=== PATIENT | male | born 1970 | race Caucasian/White ===

== ENCOUNTER 2017-08-25 09:52 | Inpatient (IN) | payer OTHER ==
[2017-08-25 10:30] VITALS: BMI 29.4
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
[2017-08-25] MEDS ORDERED: hydrOXYzine PAMOATE 50 MG CAPSULE (FP) PO PRN (12:00)
[2017-08-25] MEDS ORDERED: ACETAMINOPHEN 325 MG TABLET (FP) PO PRN (12:00)
[2017-08-25] MEDS ORDERED: MENTHOL/PHENOL 1 EACH UD MM PRN (12:00)
[2017-08-25] MEDS ORDERED: MAGNESIUM CITRATE 300 ML BOTTLE PO PRN (12:00)
[2017-08-25] MEDS ORDERED: MAGNESIUM HYDROX 2400MG/30ML ORAL SUSPENSION 30 ML CUP PO PRN (12:00)
[2017-08-25] MEDS ORDERED: LOPERAMIDE HCL 2 MG CAPSULE PO PRN (12:00)
[2017-08-25] MEDS ORDERED: IBUPROFEN 400 MG TABLET (FP) PO PRN (12:00)
[2017-08-25] MEDS ORDERED: MAG HYDROX/AL HYDROX/SIMETH 30 ML UNIT-DOSE CUP PO PRN (12:00)
[2017-08-25] MEDS ORDERED: guaiFENesin/D-METHORPHAN HB 10 ML UNIT-DOSE CUPS PO PRN (12:00)
[2017-08-25] MEDS ORDERED: chlordiazePOXIDE HCL 25 MG CAPSULE PO PRN (12:00)
[2017-08-25] MEDS ORDERED: P-EPHED 60MG/TRIPROLIDI 2.5MG TABLET PO PRN (12:00)
[2017-08-25] MEDS: LIDOCAINE 5% TOPICAL PATCH TP SCH (12:47)
[2017-08-25] MEDS ORDERED: chlordiazePOXIDE HCL 25 MG CAPSULE PO ONE (13:00)
[2017-08-25] MEDS: LEVOTHYROXINE NA 175 MCG TABLET PO SCH (13:31)
[2017-08-25 16:28] LABS: URINE APPEARANCE CLEAR; URINE BILIRUBIN NEGATIVE (NEGATIVE); URINE BLOOD NEGATIVE (NEGATIVE); URINE COLOR YELLOW; URINE GLUCOSE (UA) NEGATIVE (NEGATIVE); URINE KETONE NEGATIVE (NEGATIVE); URINE LEUK ESTERASE NEGATIVE (NEGATIVE); URINE NITRITE NEGATIVE (NEGATIVE); URINE PROTEIN NEGATIVE (NEGATIVE); URINE UROBILINOGEN 4.0 E.U/dl mg/dL (0.2-1.0)
[2017-08-25] MEDS: chlordiazePOXIDE HCL 25 MG CAPSULE PO SCH ×2 (17:16→22:40)
[2017-08-25] MEDS: IBUPROFEN 600 MG TABLET (FP) PO PRN (18:13)
[2017-08-25] MEDS: LIDOCAINE PATCH REMOVAL MC SCH (22:40)
[2017-08-25] MEDS: THIAMINE HCL 100 MG TABLET (FP) PO SCH (22:40)
[2017-08-26] MEDS: chlordiazePOXIDE HCL 25 MG CAPSULE PO SCH ×4 (06:03→22:54)
[2017-08-26] MEDS: PRENATAL VITAMINS W/ FOLIC ACID TABLET (FP) PO SCH (10:18)
[2017-08-26] MEDS: LIDOCAINE 5% TOPICAL PATCH TP SCH (10:19)
[2017-08-26] MEDS: LEVOTHYROXINE NA 175 MCG TABLET PO SCH (10:19)
[2017-08-26] MEDS: IBUPROFEN 600 MG TABLET (FP) PO PRN ×2 (10:36→17:38)
[2017-08-26 10:52] LABS: HEMATOCRIT 42.9 % (35.4-49); HEMOGLOBIN 14.2 GM/dL (11.7-16.9); MCHC 33.1 g/dl (32.0-35.9); MEAN CELL VOLUME 96.8 fl (80-96); MEAN PLT VOLUME 9.6 fl (7.5-11.1); PLATELET COUNT 260 K/MM3 (134-434); RBC 4.43 M/mm3 (4.00-5.60); RDW 14.7 % (11.9-15.9)
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
[2017-08-26 11:08] LABS: ALBUMIN 3.7 g/dl (3.4-5.0); ALK PHOS 106 U/L (45-117); ANION GAP 6 (8-16); BILIRUBIN,TOTAL 0.4 mg/dL (0.2-1.0); BLOOD UREA NITROGEN 16 mg/dL (7-18); CALCIUM 7.8 mg/dL (8.5-10.1); CHLORIDE 111 mmol/L (98-107); CO2 26 mmol/L (21-32); GLUCOSE,RANDOM 68 mg/dL (74-106); POTASSIUM 4.4 mmol/L (3.5-5.1); SGOT/AST 20 U/L (15-37); SGPT/ALT 24 U/L (12-78); SODIUM 143 mmol/L (136-145); TOT PROT 6.6 g/dl (6.4-8.2)
--- NOTE | 2017-08-26 11:19 | EKG ---
Test Reason : Blood Pressure : / mmHG Vent. Rate : 058 BPM Atrial Rate : 058 BPM P-R Int : 138 ms QRS Dur : 100 ms QT Int : 408 ms P-R-T Axes : 058 047 036 degrees QTc Int : 400 ms SINUS BRADYCARDIA OTHERWISE NORMAL ECG NO PREVIOUS ECGS AVAILABLE Confirmed by OSMANI CUEVAS MD ([id number]) on 08/26/2017 11:19:09 AM Referred By: Confirmed By:OSMANI CUEVAS MD
[2017-08-26] MEDS ORDERED: hydrOXYzine PAMOATE 50 MG CAPSULE (FP) PO PRN (11:23)
[2017-08-26] MEDS: ESCITALOPRAM OXALATE 10 MG TABLET (FP) PO SCH (13:58)
--- NOTE | 2017-08-26 16:33 | PN ---
S CIWA - CIWA Score Nausea/Vomitin Muscle Tremors: 3 Anxiety: 3 Agitation: 3 Paroxysmal Sweats: 1-Minimal Palms Moist Orientation: 0-Oriented Tacttile Disturbances: 1-Very Mild Itch/Numbness Auditory Disturbances: 1-Very Mild Visual Disturbances: 0-None Headache: 2-Mild CIWA-Ar Total Score: 17 BHS Progress Note (SOAP) Subjective: ALERT,IRRITABLE,ANXIOUS,INTERRUPTED SLEEP Objective: 08/26/17 16:32 Vital Signs Temperature 99.6 F 08/26/17 13:50 Pulse Rate 57 L 08/26/17 13:50 Respiratory Rate 18 08/26/17 13:50 Blood Pressure 120/76 08/26/17 13:50 O2 Sat by Pulse Oximetry (%) Laboratory Last Values WBC 7.0 K/mm3 (4.0-10.0) 08/26/17 08:00 RBC 4.43 M/mm3 (4.00-5.60) 08/26/17 08:00 Hgb 14.2 GM/dL (11.7-16.9) 08/26/17 08:00 Hct 42.9 % (35.4-49) 08/26/17 08:00 MCV 96.8 fl (80-96) H 08/26/17 08:00 MCH 32.0 pg (25.7-33.7) 08/26/17 08:00 MCHC 33.1 g/dl (32.0-35.9) 08/26/17 08:00 RDW 14.7 % (11.9-15.9) 08/26/17 08:00 Plt Count 260 K/MM3 (134-434) 08/26/17 08:00 MPV 9.6 fl (7.5-11.1) 08/26/17 08:00 Sodium 143 mmol/L (136-145) 08/26/17 08:00 Potassium 4.4 mmol/L (3.5-5.1) 08/26/17 08:00 Chloride 111 mmol/L (98-107) H 08/26/17 08:00 Carbon Dioxide 26 mmol/L (21-32) 08/26/17 08:00 Anion Gap 6 (8-16) L 08/26/17 08:00 BUN 16 mg/dL (7-18) 08/26/17 08:00 Creatinine 1.0 mg/dL (0.7-1.3) 08/26/17 08:00 Creat Clearance w eGFR > 60 (>60) 08/26/17 08:00 Random Glucose 68 mg/dL (74-106) L 08/26/17 08:00 Calcium 7.8 mg/dL (8.5-10.1) L 08/26/17 08:00 Total Bilirubin 0.4 mg/dL (0.2-1.0) 08/26/17 08:00 AST 20 U/L (15-37) 08/26/17 08:00 ALT 24 U/L (12-78) 08/26/17 08:00 Alkaline Phosphatase 106 U/L (45-117) 08/26/17 08:00 Total Protein 6.6 g/dl (6.4-8.2) 08/26/17 08:00 Albumin 3.7 g/dl (3.4-5.0) 08/26/17 08:00 Urine Color Yellow 08/25/17 16:00 Urine Appearance Clear 08/25/17 16:00 Urine pH 5.0 (5.0-8.0) 08/25/17 16:00 Ur Specific [place] 1.026 (1.001-1.035) 08/25/17 16:00 Urine Protein Negative (NEGATIVE) 08/25/17 16:00 Urine Glucose (UA) Negative (NEGATIVE) 08/25/17 16:00 Urine Ketones Negative (NEGATIVE) 08/25/17 16:00 Urine Blood Negative (NEGATIVE) 08/25/17 16:00 Urine Nitrite Negative (NEGATIVE) 08/25/17 16:00 Urine Bilirubin Negative (NEGATIVE) 08/25/17 16:00 Urine Urobilinogen 4.0 e.u/dl mg/dL (0.2-1.0) 08/25/17 16:00 Ur Leukocyte Esterase Negative (NEGATIVE) 08/25/17 16:00 RPR Titer Nonreactive (NONREACTIVE) 08/26/17 08:00 Assessment: 08/26/17 16:33 WITHDRAWAL SYMPTOM Plan: CONTINUE DETOX,BGM MONITORING,INITIAL GLUCOSE IS 68
[2017-08-26] MEDS: THIAMINE HCL 100 MG TABLET (FP) PO SCH (22:53)
[2017-08-26] MEDS: LIDOCAINE PATCH REMOVAL MC SCH (22:54)
[2017-08-26] MEDS: HYDROCORTISONE 1% TOPICAL CREAM 30 GM TUBE TP PRN (22:55)
[2017-08-27] MEDS: chlordiazePOXIDE HCL 25 MG CAPSULE PO SCH ×2 (05:49→10:50)
[2017-08-27] MEDS ORDERED: LEVOTHYROXINE NA 25 MCG TABLET (FP) ONE (06:16)
[2017-08-27] MEDS ORDERED: LEVOTHYROXINE NA 100 MCG TABLET (FP) ONE (06:16)
[2017-08-27] MEDS: LEVOTHYROXINE 75 MCG, LEVOTHYROXINE 100 MCG PO SCH (06:21)
[2017-08-27] MEDS: IBUPROFEN 600 MG TABLET (FP) PO PRN ×2 (06:58→22:08)
[2017-08-27] MEDS ORDERED: LEVOTHYROXINE NA 175 MCG TABLET PO SCH (07:00)
[2017-08-27] MEDS: LIDOCAINE 5% TOPICAL PATCH TP SCH (10:50)
[2017-08-27] MEDS: PRENATAL VITAMINS W/ FOLIC ACID TABLET (FP) PO SCH (10:50)
[2017-08-27] MEDS: ESCITALOPRAM OXALATE 10 MG TABLET (FP) PO SCH (10:50)
[2017-08-27] MEDS: CYCLOBENZAPRINE HCL 10 MG TABLET (FP) PO PRN (10:50)
--- NOTE | 2017-08-27 16:25 | PN ---
[facility] CIWA - CIWA Score Nausea/Vomitin Muscle Tremors: 3 Anxiety: 5 Agitation: 5 Paroxysmal Sweats: No Perspiration Orientation: 2-Disoriented Date<2 days Tacttile Disturbances: 1-Very Mild Itch/Numbness Auditory Disturbances: 0-None Visual Disturbances: 0-None Headache: 0-None Present CIWA-Ar Total Score: 19 BHS Progress Note (SOAP) Subjective: Anxious, Agitated, Sweating, Chills, Diarrhea, Nausea, Body Aches. Objective: PT. A & O X 3, OBSERVED MOVING ABOUT UNIT IN A WHEELCHAIR. NO ACUTE DISTRESS. 08/27/17 16:23 Vital Signs Temperature 96.6 F L 08/27/17 14:08 Pulse Rate 59 L 08/27/17 14:08 Respiratory Rate 20 08/27/17 14:08 Blood Pressure 117/68 08/27/17 14:08 O2 Sat by Pulse Oximetry (%) Laboratory Tests 08/25/17 08/26/17 08/26/17 16:00 08:00 08:00 WBC 7.0 RBC 4.43 Hgb 14.2 Hct 42.9 MCV 96.8 H MCH 32.0 MCHC 33.1 RDW 14.7 Plt Count 260 MPV 9.6 Sodium 143 Potassium 4.4 Chloride 111 H Carbon Dioxide 26 Anion Gap 6 L BUN 16 Creatinine 1.0 Creat Clearance w eGFR > 60 POC Glucometer Random Glucose 68 L Calcium 7.8 L Total Bilirubin 0.4 AST 20 ALT 24 Alkaline Phosphatase 106 Total Protein 6.6 Albumin 3.7 Urine Color Yellow Urine Appearance Clear Urine pH 5.0 Ur Specific [place] 1.026 Urine Protein Negative Urine Glucose (UA) Negative Urine Ketones Negative Urine Blood Negative Urine Nitrite Negative Urine Bilirubin Negative Urine Urobilinogen 4.0 e.u/dl Ur Leukocyte Esterase Negative RPR Titer 08/26/17 08/27/17 08:00 06:25 WBC RBC Hgb Hct MCV MCH MCHC RDW Plt Count MPV Sodium Potassium Chloride Carbon Dioxide Anion Gap BUN Creatinine Creat Clearance w eGFR POC Glucometer 99 Random Glucose Calcium Total Bilirubin AST ALT Alkaline Phosphatase Total Protein Albumin Urine Color Urine Appearance Urine pH Ur Specific [place] Urine Protein Urine Glucose (UA) Urine Ketones Urine Blood Urine Nitrite Urine Bilirubin Urine Urobilinogen Ur Leukocyte Esterase RPR Titer Nonreactive LABS NOTED. Assessment: 08/27/17 16:24 WITHDRAWAL SYMPTOMS. Plan: CONTINUE DETOX. PRN IMMODIUM FOR DIARRHEA. PRN IBUPROFEN FOR BODY ACHES / PAIN. INCREASE DAILY PO FLUID INTAKE.
[2017-08-27] MEDS: chlordiazePOXIDE 5 MG CAPSULE PO SCH ×2 (17:31→22:07)
[2017-08-27] MEDS: LIDOCAINE PATCH REMOVAL MC SCH (22:07)
[2017-08-27] MEDS: THIAMINE HCL 100 MG TABLET (FP) PO SCH (22:07)
[2017-08-28] MEDS ORDERED: LEVOTHYROXINE NA 25 MCG TABLET (FP) ONE (03:51)
[2017-08-28] MEDS ORDERED: LEVOTHYROXINE NA 100 MCG TABLET (FP) ONE (03:52)
[2017-08-28] MEDS: chlordiazePOXIDE 5 MG CAPSULE PO SCH ×2 (05:23→10:25)
[2017-08-28] MEDS: IBUPROFEN 600 MG TABLET (FP) PO PRN ×2 (06:30→17:24)
[2017-08-28] MEDS: LEVOTHYROXINE 75 MCG, LEVOTHYROXINE 100 MCG PO SCH (07:42)
[2017-08-28] MEDS: ESCITALOPRAM OXALATE 10 MG TABLET (FP) PO SCH (10:24)
[2017-08-28] MEDS: PRENATAL VITAMINS W/ FOLIC ACID TABLET (FP) PO SCH (10:24)
[2017-08-28] MEDS: LIDOCAINE 5% TOPICAL PATCH TP SCH (10:25)
--- NOTE | 2017-08-28 11:24 | PN ---
S Progress Note (SOAP) Subjective: C/O DIARRHEA,LIGHTHEAD, ANXIETY,IRRITABILITY,AGITATION. Objective: 08/28/17 11:23 Vital Signs Temperature 97.5 F L 08/28/17 09:37 Pulse Rate 55 L 08/28/17 09:37 Respiratory Rate 18 08/28/17 09:37 Blood Pressure 121/75 02 09:37 O2 Sat by Pulse Oximetry (%) Laboratory Last Values WBC 7.0 K/mm3 (4.0-10.0) 08/26/17 08:00 RBC 4.43 M/mm3 (4.00-5.60) 08/26/17 08:00 Hgb 14.2 GM/dL (11.7-16.9) 08/26/17 08:00 Hct 42.9 % (35.4-49) 08/26/17 08:00 MCV 96.8 fl (80-96) H 08/26/17 08:00 MCH 32.0 pg (25.7-33.7) 08/26/17 08:00 MCHC 33.1 g/dl (32.0-35.9) 08/26/17 08:00 RDW 14.7 % (11.9-15.9) 08/26/17 08:00 Plt Count 260 K/MM3 (134-434) 08/26/17 08:00 MPV 9.6 fl (7.5-11.1) 08/26/17 08:00 Sodium 143 mmol/L (136-145) 08/26/17 08:00 Potassium 4.4 mmol/L (3.5-5.1) 08/26/17 08:00 Chloride 111 mmol/L (98-107) H 08/26/17 08:00 Carbon Dioxide 26 mmol/L (21-32) 08/26/17 08:00 Anion Gap 6 (8-16) L 08/26/17 08:00 BUN 16 mg/dL (7-18) 08/26/17 08:00 Creatinine 1.0 mg/dL (0.7-1.3) 08/26/17 08:00 Creat Clearance w eGFR > 60 (>60) 08/26/17 08:00 POC Glucometer 99 UNITS (80-120) 08/27/17 06:25 Random Glucose 68 mg/dL (74-106) L 08/26/17 08:00 Calcium 7.8 mg/dL (8.5-10.1) L 08/26/17 08:00 Total Bilirubin 0.4 mg/dL (0.2-1.0) 08/26/17 08:00 AST 20 U/L (15-37) 08/26/17 08:00 ALT 24 U/L (12-78) 08/26/17 08:00 Alkaline Phosphatase 106 U/L (45-117) 08/26/17 08:00 Total Protein 6.6 g/dl (6.4-8.2) 08/26/17 08:00 Albumin 3.7 g/dl (3.4-5.0) 08/26/17 08:00 Urine Color Yellow 08/25/17 16:00 Urine Appearance Clear 08/25/17 16:00 Urine pH 5.0 (5.0-8.0) 08/25/17 16:00 Ur Specific [place] 1.026 (1.001-1.035) 08/25/17 16:00 Urine Protein Negative (NEGATIVE) 08/25/17 16:00 Urine Glucose (UA) Negative (NEGATIVE) 08/25/17 16:00 Urine Ketones Negative (NEGATIVE) 08/25/17 16:00 Urine Blood Negative (NEGATIVE) 08/25/17 16:00 Urine Nitrite Negative (NEGATIVE) 08/25/17 16:00 Urine Bilirubin Negative (NEGATIVE) 08/25/17 16:00 Urine Urobilinogen 4.0 e.u/dl mg/dL (0.2-1.0) 08/25/17 16:00 Ur Leukocyte Esterase Negative (NEGATIVE) 08/25/17 16:00 RPR Titer Nonreactive (NONREACTIVE) 08/26/17 08:00 Assessment: 08/28/17 11:24 WITHDRAWAL SX Plan: CONTINUE DETOX IMODIUM PRN MONITOR PT PER PROTOCOL.
[2017-08-28] MEDS: chlordiazePOXIDE HCL 10 MG CAPSULE PO SCH ×2 (17:21→23:41)
[2017-08-28] MEDS: HYDROCORTISONE 1% TOPICAL CREAM 30 GM TUBE TP PRN (17:26)
[2017-08-28] MEDS: LIDOCAINE PATCH REMOVAL MC SCH (23:41)
[2017-08-28] MEDS: THIAMINE HCL 100 MG TABLET (FP) PO SCH (23:41)
[2017-08-29] MEDS ORDERED: LEVOTHYROXINE NA 25 MCG TABLET (FP) ONE (04:42)
[2017-08-29] MEDS ORDERED: LEVOTHYROXINE NA 100 MCG TABLET (FP) ONE (04:42)
[2017-08-29] MEDS: chlordiazePOXIDE HCL 10 MG CAPSULE PO SCH (06:06)
[2017-08-29] MEDS: LEVOTHYROXINE 75 MCG, LEVOTHYROXINE 100 MCG PO SCH (06:06)
[2017-08-29] MEDS: CYCLOBENZAPRINE HCL 10 MG TABLET (FP) PO PRN (06:07)
--- NOTE | 2017-08-29 09:20 | DS ---
[facility] Detox Discharge Summary Admission Date: 08/25/17 Discharge Date: 08/29/17 - History Present History: Alcohol Dependence Additional Comments: DETOX COMPLETED. ALERT O X 3. OOB AMBULATING WITHOUT WHEELCHAIR. CANE WAS ORDERED AND GIVING TO PT ON DISCHARGE FOR SUPPORT NEEDED FOR C/O CHRONIC SCIATICA PAIN WHEN STANDING. PT STATES HE HAS A PMD AND THAT HE HAS HIS MEDS AT HOME. PT DECLINED TO SAY NAME OF PMD FOR PRIMARY CARE FOLLOW UP STATING HE KNOWS WHERE TO GO. Pertinent Past History: SEE DX BELOW - Physical Exam Results Vital Signs: Vital Signs Temperature 96.9 F L 08/29/17 06:04 Pulse Rate 53 L 08/29/17 06:04 Respiratory Rate 18 08/29/17 06:04 Blood Pressure 101/61 08/29/17 06:04 O2 Sat by Pulse Oximetry (%) Pertinent Admission Physical Exam Findings: WITHDRAWAL SX Laboratory Last Values WBC 7.0 K/mm3 (4.0-10.0) 08/26/17 08:00 RBC 4.43 M/mm3 (4.00-5.60) 08/26/17 08:00 Hgb 14.2 GM/dL (11.7-16.9) 08/26/17 08:00 Hct 42.9 % (35.4-49) 08/26/17 08:00 MCV 96.8 fl (80-96) H 08/26/17 08:00 MCH 32.0 pg (25.7-33.7) 08/26/17 08:00 MCHC 33.1 g/dl (32.0-35.9) 08/26/17 08:00 RDW 14.7 % (11.9-15.9) 08/26/17 08:00 Plt Count 260 K/MM3 (134-434) 08/26/17 08:00 MPV 9.6 fl (7.5-11.1) 08/26/17 08:00 Sodium 143 mmol/L (136-145) 08/26/17 08:00 Potassium 4.4 mmol/L (3.5-5.1) 08/26/17 08:00 Chloride 111 mmol/L (98-107) H 08/26/17 08:00 Carbon Dioxide 26 mmol/L (21-32) 08/26/17 08:00 Anion Gap 6 (8-16) L 08/26/17 08:00 BUN 16 mg/dL (7-18) 08/26/17 08:00 Creatinine 1.0 mg/dL (0.7-1.3) 08/26/17 08:00 Creat Clearance w eGFR > 60 (>60) 08/26/17 08:00 POC Glucometer 96 UNITS (80-120) 08/29/17 06:05 Random Glucose 68 mg/dL (74-106) L 08/26/17 08:00 Calcium 7.8 mg/dL (8.5-10.1) L 08/26/17 08:00 Total Bilirubin 0.4 mg/dL (0.2-1.0) 08/26/17 08:00 AST 20 U/L (15-37) 08/26/17 08:00 ALT 24 U/L (12-78) 08/26/17 08:00 Alkaline Phosphatase 106 U/L (45-117) 08/26/17 08:00 Total Protein 6.6 g/dl (6.4-8.2) 08/26/17 08:00 Albumin 3.7 g/dl (3.4-5.0) 08/26/17 08:00 Urine Color Yellow 08/25/17 16:00 Urine Appearance Clear 08/25/17 16:00 Urine pH 5.0 (5.0-8.0) 08/25/17 16:00 Ur Specific [place] 1.026 (1.001-1.035) 08/25/17 16:00 Urine Protein Negative (NEGATIVE) 08/25/17 16:00 Urine Glucose (UA) Negative (NEGATIVE) 08/25/17 16:00 Urine Ketones Negative (NEGATIVE) 08/25/17 16:00 Urine Blood Negative (NEGATIVE) 08/25/17 16:00 Urine Nitrite Negative (NEGATIVE) 08/25/17 16:00 Urine Bilirubin Negative (NEGATIVE) 08/25/17 16:00 Urine Urobilinogen 4.0 e.u/dl mg/dL (0.2-1.0) 08/25/17 16:00 Ur Leukocyte Esterase Negative (NEGATIVE) 08/25/17 16:00 RPR Titer Nonreactive (NONREACTIVE) 08/26/17 08:00 - Treatment Hospital Course: Detox Protocol Followed, Detoxed Safely, Responded well, Discharged Condition Good - Medication Discharge Medications: Ambulatory Orders Levothyroxine [Synthroid -] 175 mcg PO DAILY 08/25/17 - Diagnosis (1) Alcohol dependence with uncomplicated withdrawal Status: Acute (2) Nicotine dependence Status: Acute Qualifiers: Nicotine product type: cigarettes Substance use status: in withdrawal Qualified Code(s): F17.213 - Nicotine dependence, cigarettes, with withdrawal (3) History of seizure Status: Chronic (4) Hypercholesteremia Status: Chronic (5) Intermittent explosive disorder Status: Chronic (6) Low back pain with left-sided sciatica Status: Chronic Qualifiers: Chronicity: chronic Back pain laterality: midline Qualified Code(s): M54.42 - Lumbago with sciatica, left side; G89.29 - Other chronic pain; G89.29 - Other chronic pain (7) Traumatic brain injury Status: Chronic Qualifiers: Encounter type: sequela Loss of consciousness presence/duration: with LOC of unspecified duration Qualified Code(s): S06.9X9S - Unspecified intracranial injury with loss of consciousness of unspecified duration, sequela (8) Phencyclidine dependence Status: Acute (9) Dermatitis Status: Chronic (10) Cannabis dependence Status: Acute (11) Cocaine dependence Status: Acute Qualifiers: Substance use status: in withdrawal Qualified Code(s): F14.23 - Cocaine dependence with withdrawal - AMA Did Patient Leave Against Medical Advice: No
[2017-08-29 09:31] VITALS: BP 108/72; PULSE 54; TEMP 95.8
== END 2017-08-29 09:30 | disposition home or self-care (01) | DRG 774 ==
LOC: YASAS 09:52 → Y3N 11:53
PROVIDERS: ADMIT Internal Medicine; ATTEND Internal Medicine
PROC: HZ2ZZZZ Detoxification Services for Substance Abuse Treatment (ICD-10-PCS; principal; 2017-08-25)
DX: F10.230 Alcohol dependence with withdrawal, uncomplicated (principal); F14.20 Cocaine dependence, uncomplicated; F12.20 Cannabis dependence, uncomplicated; F16.20 Hallucinogen dependence, uncomplicated; F17.210 Nicotine dependence, cigarettes, uncomplicated; F43.10 Post-traumatic stress disorder, unspecified; F31.9 Bipolar disorder, unspecified; F63.81 Intermittent explosive disorder; M54.42 Lumbago with sciatica, left side; L30.8 Other specified dermatitis; Z86.69 Personal history of other diseases of the nervous system and sense organs; E78.00 Pure hypercholesterolemia, unspecified
CPT/HCPCS: 36415; 80053; 81003; 82962; 85027; 86593; 93005; 93010